=== PATIENT | female | born 1995 | race Caucasian/White ===

== ENCOUNTER 2022-10-06 18:28 | Outpatient (REF) | payer OTHER, SELFPAY ==
--- NOTE | 2022-10-06 17:30 | PAPFT_PTH ---
PATIENT: Macie Altman LOC: [facility] U#:[id number] AGE/SX: 26/F ROOM: RE10/06/[address]: Sheila Hendricks : 1995 BED: DIS: 10/06/2022 SPEC #: [id number] RECD: 10/07/22 13:01 STATUS: LISETTE TAMEZ #: [id number] TALISHA: 10/06/22 17:[address]: Sheila Hendricks DEPT: [facility] Cytology RECD BY: [place] Tissues: 1 - CX/ENDOCX FOR PAP SMEARS Procedures: PAP THIN PREP/[facility] Screening Comments: [id number] (CHLAMYDIA/GC)
[2022-10-08 15:26] LABS: Chlamydia Result Negative (Negative); GC Result Negative (Negative)
== END 2022-10-06 18:29 | disposition home or self-care (01) ==
LOC: NCHCN 18:28
PROVIDERS: Visit Provider Nurse Practitioner Family
DX: Z11.3 Encounter for screening for infections with a predominantly sexual mode of transmission (principal); Z12.4 Encounter for screening for malignant neoplasm of cervix; Z00.00 Encounter for general adult medical examination without abnormal findings
CPT/HCPCS: 87491; 87591; 88142